=== PATIENT | male | born 1985 | race Two or more races ===

== ENCOUNTER 2016-04-29 21:19 | Emergency (ER) | payer BC ==
[~2016-04-29] VITALS: Ht 175.3 cm; Wt 99.8 kg
[~2016-04-29 21:19] MED LIST: CETI10TA22 PO; FAMO-63 PO; LEVO750T31 PO; NAPR220C4 PO; OXYC-323 PO; OXYC5TAB88 PO; PRED50TA PO; TAMS0.4C97 PO
[2016-04-29 22:13] VITALS: BP 126/71
[2016-04-29] MEDS ORDERED: BENZ100C PO (22:45)
--- NOTE | 2016-04-29 23:06 | ED.ADGEN ---
Past Medical History Past Medical History: Bronchitis, Kidney Stone, Other Additional Past Medical Histor: SEASONAL ALLERGIES Past Surgical History: Other Additional Past Surgical Histo: ureter stent place/remove Alcohol Use: None Drug Use: None Adult General Chief Complaint Chief Complaint: SHORTNESS OF BREATH HPI HPI Patient is a 30 year old man, history of seasonal allergies, renal calculi, who presents to the emergency department with complaint of cough productive of white and green sputum, worse in the mornings for the past 3 days, with rhinorrhea, postnasal drip, nasal congestion. Patient denies any chills, states that he "may have had a fever" last night, states that he felt hot but did not take temperature, denies any sick contacts or exposures, states that he did receive his flu vaccination this year. No GI or complaints, no injuries, no headache, no weakness numbness or tingling, states that he has chest pain with coughing, has had bronchitis previously. Patient does smoke, and states that he is tried to cut back. No difficulty breathing, patient's oxygen saturation is 99 -100% on room air, respiratory rate is 18 unlabored in the emergency department , with coughing. Review of Systems Review of Systems Constitutional: Denies fever or chills. [] Eyes: Denies change in visual acuity. [] HENT: Nasal congestion with sore throat. Respiratory: Cough productive of green and white sputum, no shortness of breath.. [] Cardiovascular: Chest soreness with coughing, no edema. GI: Denies abdominal pain, nausea, vomiting, bloody stools or diarrhea. [] : Denies dysuria. [] Musculoskeletal: Denies back pain or joint pain. [] Integument: Denies rash. [] Neurologic: Denies headache, focal weakness or sensory changes. [] Endocrine: Denies polyuria or polydipsia. [] Lymphatic: Denies swollen glands. [] Psychiatric: Denies depression or anxiety. [] Allergies Allergies Allergies Coded Allergies Type Severity Reaction Last Updated Verified No Known Drug Allergies 12/19/14 No Physical Exam Physical Exam Constitutional: Well developed, well nourished, no acute distress, non-toxic appearance. [] HENT: Normocephalic, atraumatic, bilateral external ears normal, oropharynx moist, no oral exudates, turbinate swelling bilaterally, with clear rhinorrhea, postnasal drip noted, mild injection, no exudates noted in the oropharynx. Eyes: PERRLA, EOMI, conjunctiva normal, no discharge. [] Neck: Normal range of motion, no tenderness, supple, no stridor. [] Cardiovascular:Heart rate regular rhythm, no murmur, S1, S2, rubs or gallops. [] Lungs & Thorax: Bilateral breath sounds clear to auscultation, mild tenderness palpation across the anterior chest, no sternal signs of trauma. No point tenderness or crepitus. Abdomen: Bowel sounds normal, soft, no tenderness, no masses, no pulsatile masses. [] Skin: Warm, dry, no erythema, no rash. [] Back: No tenderness, no CVA tenderness. [] Extremities: No tenderness, no cyanosis, no clubbing, ROM intact, no edema. [] Negative Homans sign. Neurologic: Alert and oriented X 3, normal motor function, normal sensory function, no focal deficits noted. [] Psychologic: Affect normal, judgement normal, mood normal. [] Current Patient Data Vital Signs Vital Signs Date Time Temp Pulse Resp B/P Pulse Ox O2 Delivery O2 Flow Rate FiO2 04/29/16 22:13 82 20 126/71 99 Room Air 04/29/16 21:40 97.9 97.9 EKG EKG Not indicated. Radiology/Procedures Radiology/Procedures Chest x-ray: Normal cardiopulmonary silhouette, no focal traits, no effusions, no soft tissue or bony abnormalities identified, no pneumothorax. As interpreted by me. Course & Med Decision Making Course & Med Decision Making Pertinent Labs and Imaging studies reviewed. (See chart for details) Patient well-appearing, noted to have evidence of upper respiratory infection, possible seasonal allergies contribute in, with postnasal drip and rhinorrhea, also turbinate swelling. No evidence of lower airspace disease on examination, chest x-ray obtained admitted to patient's history of bronchitis, and complaints , does not reveal any evidence of occult findings. Discussed use of Flonase, patient started using, in conjunction with Tessalon Perles, and supportive measures, preventative allergy medications such as loratadine, concerning symptoms to prompt return discussed. Patient given clear and detailed return and medication instructions and precautions, list of available primary care providers, discharged home in stable condition with plan as above. Dragon Disclaimer Dragon Disclaimer This electronic medical record was generated, in whole or in part, using a voice recognition dictation system. Departure Impression: Primary Impression: Viral respiratory illness Additional Impression: Seasonal allergies Disposition: 01 HOME, SELF-CARE Condition: IMPROVED Scripts Benzonatate (Tessalon Perle)100 Mg [id number] Mg PO TID PRN COUGH #14 CAP Prov:JEANIE OWUSU DO 04/29/16 Problem Qualifiers JEANIE OWUSU DO Apr 29, 2016 23:06
--- NOTE | 2016-04-30 08:18 | RAD ---
Chest, 2 views, 04/29/2016: History: Dyspnea, bronchitis The heart size and pulmonary vascularity are normal. No pulmonary infiltrates are seen. There is no evidence of pleural fluid. IMPRESSION: No acute cardiopulmonary abnormality is detected.
== END 2016-04-29 22:58 | disposition home or self-care (01) ==
LOC: ER 21:19
DX: B34.9 Viral infection, unspecified (principal); J30.2 Other seasonal allergic rhinitis; Z87.442 Personal history of urinary calculi
CPT/HCPCS: 71020; 99284

== ENCOUNTER 2017-05-22 18:10 | Emergency (ER) | payer BC ==
[2017-05-22] MEDS: TETRACAINE 0.5% OPHTH SOLUTION 4ML BOTTLE. OS (18:15)
[2017-05-22] MEDS: FLUORESCEIN OPHTH TEST STRIP. OS (18:15)
== END 2017-05-22 18:47 | disposition home or self-care (01) ==
LOC: ER 18:47
DX: T15.91XA Foreign body on external eye, part unspecified, right eye, initial encounter (principal); Z88.8 Allergy status to other drugs, medicaments and biological substances; Z87.442 Personal history of urinary calculi
CPT/HCPCS: 99283

== ENCOUNTER 2020-07-24 04:12 | Emergency (ER) | payer BC, OTHER ==
[~2020-07-24] VITALS: Ht 177.8 cm; Wt 120.0 kg
[~2020-07-24 04:12] MED LIST changes: +BENZ100C PO; -CETI10TA22 PO; +CETI10TA74 PO; -OXYC-323 PO; +OXYC1TAB15 PO
[2020-07-24 04:21] VITALS: BP 148/88
[2020-07-24] MEDS ORDERED: TETRACAINE 0.5% OPHTH SOLUTION 4ML BOTTLE. ONE (04:35)
[2020-07-24] MEDS ORDERED: FLUORESCEIN OPHTH TEST STRIP. OU ONE (04:45)
[2020-07-24] MEDS ORDERED: CIPROFLOXACIN 0.3% OPHTH SOLUTION 5ML BOTTLE. OS ONE (04:45)
[2020-07-24] MEDS ORDERED: DIPH,PERTUSS(ACELL),TET VAC/PF 0.5 ML SYRINGE. VAX IM ONE (04:45)
[2020-07-24] MEDS ORDERED: TETRACAINE 0.5% OPHTH SOLUTION 4ML BOTTLE. OS ONE (04:45)
[2020-07-24] MEDS ORDERED: KETOROLAC TROMETHAMINE 0.5% OPHTH SOLUTION 5ML BOTTLE. OS ONE (04:45)
--- NOTE | 2020-07-24 04:52 | ED.ADGEN ---
Past Medical History Past Medical History: Bronchitis, Kidney Stone, Other Additional Past Medical Histor: SEASONAL ALLERGIES Past Surgical History: Other Additional Past Surgical Histo: ureter stent place/remove Smoking Status: Current Every Day Smoker Alcohol Use: None Drug Use: None General Adult EDM: Chief Complaint: EYE PROBLEMS HPI: HPI: Patient is a 34 year old male coming in for pain to his right eyebrow. Patient states he was playing with his son about 6 hours ago when his son rates back and scratched his eye. Denies any significant forceful trauma. Does not wear contacts or glasses. No other injuries. Last tetanus more than 5 years ago Review of Systems: Review of Systems: All other systems within normal limits except for as noted in the HPI Current Medications: Current Medications Medications (Trade) Dose Ordered Sig/Gloria Start Time Stop Time Status Last Admin Dose Admin Fluorescein Sodium (Ful-Nori) 1 strip 1X ONCE 07/24/20 04:45 07/24/20 04:46 Tetracaine HCl (Tetracaine) 40 drop STK-MED ONCE 07/24/20 04:35 07/24/20 04:35 DC Allergies: Allergies: Allergies Coded Allergies Type Severity Reaction Last Updated Verified No Known Drug Allergies 07/24/20 No Physical Exam: PE: Constitutional: Well developed, well nourished, no acute distress, non-toxic appearance. [] HENT: Normocephalic, atraumatic, bilateral external ears normal, nose normal. [] Eyes: PERRLA, extraocular intact, injection of conjunctiva. Pain relieved with tetracaine. No foreign body or Dino sign with fluorescein. No foreign bodies on eversion of eyelids. Superficial linear area of fluorescein uptake lateral to iris. Neck: No rigidity, supple, no stridor. [] Cardiovascular: Regular rate and rhythm, brisk cap refill [] Lungs & Thorax: Non labored symmetric respirations, no tachypnea or respiratory distress [] Abdomen: Soft, nondistended. Skin: Warm, dry, no erythema, no rash. [] Back: Unremarkable Extremities: No deformities, range of motion grossly intact, no lower extremity edema [] Neurologic: Alert and oriented X 3, no focal deficits noted. [] Psychologic: Affect normal, judgement normal, mood normal. [] Current Patient Data: Vital Signs: Vital Signs Date Time Temp Pulse Resp B/P (MAP) Pulse Ox O2 Delivery O2 Flow Rate FiO2 07/24/20 04:21 97.9 60 18 148/88 (108) 98 Room Air 97.9 EKG: EKG: [] Heart Score: C/O Chest Pain: No Risk Factors: Risk Factors: DM, Current or recent (<one month) smoker, HTN, HLP, family history of CAD, obesity. Risk Scores: Score 0 - 3: 2.5% MACE over next 6 weeks - Discharge Home Score 4 - 6: 20.3% MACE over next 6 weeks - Admit for Clinical Observation Score 7 - 10: 72.7% MACE over next 6 weeks - Early Invasive Strategies Radiology/Procedures: Radiology/Procedures: [] Course & Med Decision Making: Course & Med Decision Making Tetanus updated, prophylactic antibiotics given for conjunctival abrasion. Instructions for follow-up with ophthalmology provided to patient. Shawna Disclaimer: Shawna Disclaimer: This electronic medical record was generated, in whole or in part, using a voice recognition dictation system. Departure Departure Impression: Primary Impression: Abrasion of conjunctiva, left Disposition: HOME / SELF CARE / HOMELESS Condition: STABLE Referrals: NO PCP (PCP) Jose Raul MCMAHON MD Patient Instructions: Eye - Corneal Abrasion Additional Instructions: Ciprofloxacin eyedrops: 2 drops in left eye every 6 hours for 5 days Ketorolac eyedrops: 1 drop in left eye every 6 hours as needed for pain LENI RITCHIE MD Jul 24, 2020 04:52
== END 2020-07-24 05:09 | disposition home or self-care (01) ==
LOC: ER 04:12
DX: S00.212A Abrasion of left eyelid and periocular area, initial encounter (principal); F17.200 Nicotine dependence, unspecified, uncomplicated; X58.XXXA Exposure to other specified factors, initial encounter; Y93.89 Activity, other specified; Y92.89 Other specified places as the place of occurrence of the external cause; Y99.8 Other external cause status
CPT/HCPCS: 90471; 90715; 99283-25